=== PATIENT | female | born 1965 | race Caucasian/White ===

== ENCOUNTER 2020-11-15 23:50 | Emergency (ER) | payer OTHER ==
[~2020-11-15] VITALS: Ht 175.3 cm; Wt 81.0 kg
[2020-11-16 00:04] VITALS: BP 117/79
--- NOTE | 2020-11-16 00:52 | PHYS DOC ---
Past Medical History Past Medical History: Other Additional Past Medical Histor: ADHD Past Surgical History: No Surgical History, Other Additional Past Surgical Histo: ABDOMINAL FIBRIOB REMOVAL. Smoking Status: Current Every Day Smoker Alcohol Use: Rarely Adult General Chief Complaint Chief Complaint: UPPER EXTREMITY PAIN HPI HPI Patient is a 55 year old presenting emergency department with right arm pain after a fall. Patient states she had a trip and fall while she was at home and slipped and fell onto her right elbow. Since that time has been having right- sided lateral elbow pain. Patient also complains of mild pain in the wrist and shoulder. States that she struck her head but did not lose consciousness and is not on any blood thinners. Denies any nausea or vomiting, vision changes, numbness or weakness. Review of Systems Review of Systems Constitutional: Denies fever or chills [] Eyes: Denies change in visual acuity, redness, or eye pain [] HENT: Denies nasal congestion or sore throat [] Respiratory: Denies cough or shortness of breath [] Cardiovascular: No additional information not addressed in HPI [] GI: Denies abdominal pain, nausea, vomiting, bloody stools or diarrhea [] : Denies dysuria or hematuria [] Musculoskeletal: Denies back pain or joint pain [] Integument: Denies rash or skin lesions [] Neurologic: Denies headache, focal weakness or sensory changes [] Endocrine: Denies polyuria or polydipsia [] All other systems were reviewed and found to be within normal limits, except as documented in this note. Current Medications Current Medications Current Medications Medications (Trade) Dose Ordered Sig/Doc Start Time Stop Time Status Last Admin Dose Admin Ibuprofen (Motrin) 800 mg 1X ONCE 11/16/20 01:00 11/16/20 01:01 DC 11/16/20 00:27 800 MG Allergies Allergies Allergies Coded Allergies Type Severity Reaction Last Updated Verified No Known Drug Allergies 11/16/20 No Physical Exam Physical Exam Constitutional: Well developed, well nourished, no acute distress, non-toxic appearance. [] HENT: Normocephalic, atraumatic, bilateral external ears normal, oropharynx moist, no oral exudates, nose normal. [] Eyes: PERRLA, EOMI, conjunctiva normal, no discharge. [] Neck: Normal range of motion, no tenderness, supple, no stridor. [] Cardiovascular:Heart rate regular rhythm, no murmur [] Lungs & Thorax: Bilateral breath sounds clear to auscultation [] Abdomen: Bowel sounds normal, soft, no tenderness, no masses, no pulsatile masses. [] Skin: Warm, dry, no erythema, no rash. [] Back: No tenderness, no CVA tenderness. [] Extremities: Moderate right lateral proximal forearm tenderness just distal to the elbow joint, no cyanosis, no clubbing, ROM intact, no edema. Shoulder, wrist joints without any significant tenderness with full range of motion neurovascularly intact distal to the injury Neurologic: Alert and oriented X 3, normal motor function, normal sensory function, no focal deficits noted. [] Psychologic: Affect normal, judgement normal, mood normal. [] Current Patient Data Vital Signs Vital Signs Date Time Temp Pulse Resp B/P (MAP) Pulse Ox O2 Delivery O2 Flow Rate FiO2 11/16/20 00:04 98.2 117/79 (92) 98.2 EKG EKG [] Radiology/Procedures Radiology/Procedures [] Course & Med Decision Making Course & Med Decision Making Pertinent Labs and Imaging studies reviewed. (See chart for details) 55f presented with minor injury to the right elbow and shoulder. X-ray obtained without any evidence of dislocation or fracture at this time will discharge patient Dragon Disclaimer Dragon Disclaimer This electronic medical record was generated, in whole or in part, using a voice recognition dictation system. Departure Departure Impression: Primary Impression: Contusion of right arm Disposition: 01 DC HOME SELF CARE/HOMELESS Condition: GOOD Referrals: NO PCP (PCP) Patient Instructions: Contusion, Elbow Contusion Additional Instructions: EMERGENCY DEPARTMENT GENERAL DISCHARGE INSTRUCTIONS Thank you for coming to [facility] Emergency Department (ED) today and trusting us with you care. We trust that you had a positive experience in our Emergency Department. If you wish to speak to the department management, you may call the Director at [phone]. YOUR FOLLOW UP INSTRUCTIONS ARE FOLLOWS: 1. Do you have a private Doctor? If you do not have a private doctor, please ask for a resource list of physicians or clinics that may be able to assist you with follow up care. 2. The Emergency Physicain has interpreted your x-rays. The X-Ray specialist will also review them. If there is a change in the findings, you will be notified in 48 hours when at all possible. 3. A lab test or culture has been done, your results will be reviewed and you will be notified if you need a change in treatment. ADDITIONAL INSTRUCTIONS AND INFORMATION: 1. Your care today has been supervised by a physician who is specially trained in emergency care. Many problems require more than one evaluation for a complete diagnosis and treatment. We recommend that you schedule your follow up appointment as sudha mmended to ensure complete treatment of you illness or injury. If you are unable to obtain follow up care and continue to have a problem, or if your condition worsens, we recommend that you return to the ED. 2. We are not able to safely determine your condition over the phone nor are we able to give sound medical advice over the phone. For these safety reasons, if you call for medical advice we will ask you to come to the ED for further evaluation. 3. If you have any questions regarding these discharge instructions please call the ED at [phone]. SAFETY INFORMATION: In the interest of safety, wellness, and injury prevention; we encourage you to wear your sealbelt, if you smoke; quite smoking, and we encourage family to use a protective helmet for bicycling and other sporting events that present an increased risk for head injury. IF YOUR SYMPTOMS WORSEN OR NEW SYMPTOMS DEVELOP, OR YOU HAVE CONCERNS ABOUT YOUR CONDITION; OR IF YOUR CONDITION WORSENS WHILE YOU ARE WAITING FOR YOUR FOLLOW UP APPOINTMENT; EITHER CONTACT YOUR PRIMARY CARE DOCTOR, THE PHYSICIAN WHOSE NAME AND NUMBER YOU WERE GIVEN, OR RETURN TO THE ED IMMEDIATELY. OXANA MCKNIGHT MD Nov 16, 2020 00:52
[2020-11-16] MEDS ORDERED: IBUPROFEN 400 MG TABLET. PO ONE (01:00)
--- NOTE | 2020-11-16 01:37 | RAD ---
Three-view right elbow radiographs 11/16/2020 CLINICAL HISTORY: Fall with injury to the right elbow. AP, lateral and oblique digital radiographs of the right elbow were obtained. No fracture or dislocat ion of the right elbow is seen. There is no radiographic evidence of a joint effusion. Mild degenerat yaw changes are seen involving the right elbow joint. IMPRESSION: No fracture or dislocation of the right elbow is seen. Electronically signed by: Homero Goins MD (11/16/2020 1:35 AM) [id number]
== END 2020-11-16 01:51 | disposition home or self-care (01) ==
LOC: ER 23:50
DX: S40.021A Contusion of right upper arm, initial encounter (principal); F17.200 Nicotine dependence, unspecified, uncomplicated; F90.9 Attention-deficit hyperactivity disorder, unspecified type; W01.0XXA Fall on same level from slipping, tripping and stumbling without subsequent striking against object, initial encounter; Y92.098 Other place in other non-institutional residence as the place of occurrence of the external cause; Y93.89 Activity, other specified; Y99.8 Other external cause status
CPT/HCPCS: 73080; 99283